=== PATIENT | male | born 1985 | race Caucasian/White ===

== ENCOUNTER 2016-09-14 08:58 | Emergency (ER) | payer BC, OTHER ==
[~2016-09-14] VITALS: Ht 175.3 cm; Wt 110.0 kg
[2016-09-14 09:02] VITALS: Ht 175.3 cm; Wt 110.0 kg
--- NOTE | 2016-09-14 10:09 | ERD ---
ER Documentation Chief Complaint Date/Time DATE: 09/14/16 TIME: 10:07 Chief Complaint FELT "LUMP" ON LEFT TESTICLE HPI Patient is a 31 year old male who presents to the ED with left testicular pain x 4 days. 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 Pain is when he is walking and standing. He does not have pain when he lays down. Denies history of hernia in the past. Denies vomiting or diarrhea. Denies constipation. His last bowel movement was yesterday. Denies chest pain or cough shortness of breath. Denies abdominal pain. ROS All systems reviewed and are negative except as per history of present illness. Medications Home Meds Active Scripts Naproxen* (Naprosyn*) 500 Mg Tablet, 500 MG PO BID Y for PAIN AND/OR INFLAMMATION, #30 TAB Prov:KAPIL GARCÍA PA-C 09/14/16 Allergies Allergies: Coded Allergies: No Known Allergy (Unverified , 09/14/16) PMhx/Soc Medical and Surgical Hx: pt denies Medical Hx, pt denies Surgical Hx History of Surgery: No Anesthesia Reaction: No Hx Neurological Disorder: No Hx Respiratory Disorders: No Hx Cardiac Disorders: No Hx Psychiatric Problems: No Hx Miscellaneous Medical Probl: No Hx Alcohol Use: Yes (socially) Hx Substance Use: No Hx Tobacco Use: No Smoking Status: Never smoker FmHx Family History: No coronary disease, No diabetes, No other Physical Exam Vitals Vital Signs Date Time Temp Pulse Resp B/P Pulse Ox O2 Delivery O2 Flow Rate FiO2 09/14/16 09:02 98.1 80 18 143/95 99 Physical Exam GENERAL: Well-developed, well-nourished male. Appears in no acute distress. HEAD: Normocephalic, atraumatic. EYES: Pupils are equally reactive bilaterally. EOMs grossly intact. No conjunctival erythema. ENT: Moist mucous membranes. No uvula deviation. No kissing tonsils. No exudates. NECK: Supple. No lymphadenopathy or thyromegaly. No meningismus. negative kernig. negative brudinski. LUNG: Clear to auscultation bilaterally. No rhonchi, wheezing, rales or coarse breath sounds. HEART: Regular rate and rhythm. No murmurs, rubs or gallops. ABDOMEN: No scars, ecchymosis or rashes noted. Soft, nontender, and nondistended. Positive bowel sounds in all four quadrants. No rebound tenderness , no guarding. (-) McBurneys point tenderness. No CVA tenderness. no hernia. : No erythema or swollen testicles. Bilaterally descended. Slight tenderness to the left testicle BACK: No midline tenderness. Extremities: Equal pulses bilaterally. No peripheral clubbing, cyanosis or edema. No unilateral leg swelling. NEUROLOGIC: Alert and oriented. Moving all four extremities. 5/5 strength in all extremities. Normal speech. Steady gait. SKIN: Normal color. Warm and dry. No rashes or lesions. Capillary refill < 2 seconds Procedures/MDM ER COURSE: I kept the patient and/or family informed of laboratory and diagnostic imaging results throughout the emergency room course. IMAGING STUDIES [place] [id number] Radiology Main Line: [phone] DIAGNOSTIC IMAGING REPORT Patient: LINH SRIVASTAVA : 1985 Age: 31 Sex: M MR #: [id number] DOS: 09/14/16 0930 Ordering MD: KAPIL GARCÍA PA-C Location: [facility] Room/Bed: PROCEDURE: Scrotal ultrasound CLINICAL INDICATION: Left testicular pain TECHNIQUE: Scrotal ultrasound was performed with sagittal and transverse views. Miranda scale and color imaging was performed. Images were reviewed on high resolution PACS monitors. COMPARISON: None available FINDINGS: The right testicle measures 3.6 x 2.2 x 3.3 cm. There is normal size and echogenicity and morphology of the right testicle with normal blood flow. The right epididymis is normal. No hydrocele is seen. Soft tissues are unremarkable. No mass or cyst or other abnormality is present. There is no evidence for a varicocele. The left testicle measures 2.6 x 1.7 x 3.1 cm. There is normal size and echogenicity and morphology of the left testicle with normal blood flow. There is a 4 mm left epididymal head cyst. The left epididymis is otherwise normal. No hydrocele is seen. Soft tissues are unremarkable. No mass or cyst or other abnormality is present. There is no evidence for a varicocele. IMPRESSION: Unremarkable scrotal ultrasound. RPTAT: HH .Irina Mendosa MD, Date Time Electronically viewed and signed by .Irina Mendosa MD, MD on 09/14/2016 10 :30 .G/ CC: KAPIL GARCÍA PA-C MEDICAL DECISION MAKING: This is a 31-year-old male who presents with left testicular pain 4 days. Vital signs were reviewed. Patient is afebrile. Patient is not hypoxic. Patient is nontoxic or ill-appearing ultrasound as of by radiologist is unremarkable. I have low suspicion for a strangulated or incarcerated hernia. Low suspicion for pyelonephritis, UTI, nephrolithiasis, appendicitis, testicular torsion, incarcerated or strangulated hernia. Patient was given Toradol DISCHARGE: At this time, patient is stable for discharge and outpatient management with no new complaints during the ER course. Patient was sent home with Motrin for pain and to follow-up with urologist. Copy of ultrasound report given to patient. Patient will be discharged home with instructions to recheck for new or worsening symptoms such as fever, nausea, weakness, LOC and to follow up with primary care in the next 1-2 days. Patient was advised to return to the ER for any new or worsening symptoms. Plan was discussed and patient and/or family understands and agrees. Home instructions were given. Departure Diagnosis: Primary Impression: Testicular pain, left Condition: Stable KAPIL GARCÍA PA-C Sep 14, 2016 10:09
--- NOTE | 2016-09-14 10:30 | RADRPT ---
PROCEDURE: Scrotal ultrasound CLINICAL INDICATION: Left testicular pain TECHNIQUE: Scrotal ultrasound was performed with sagittal and transverse views. Miranda scale and co elia imaging was performed. Images were reviewed on high resolution PACS monitors. COMPARISON: None available FINDINGS: The right testicle measures 3.6 x 2.2 x 3.3 cm. There is normal size and echogenicity and morphology of the right testicle with normal blood flow. The right epididymis is normal. No hydrocele is seen . Soft tissues are unremarkable. No mass or cyst or other abnormality is present. There is no evid ence for a varicocele. The left testicle measures 2.6 x 1.7 x 3.1 cm. There is normal size and echogenicity and morphology of the left testicle with normal blood flow. There is a 4 mm left epididymal head cyst. The left ep ididymis is otherwise normal. No hydrocele is seen. Soft tissues are unremarkable. No mass or cys t or other abnormality is present. There is no evidence for a varicocele. IMPRESSION: Unremarkable scrotal ultrasound. RPTAT: HH .Irina Mendosa MD, Date Time Electronically viewed and signed by .Irina Mendosa MD, MD on 09/14/2016 10:30 .G/
[2016-09-14] MEDS ORDERED: NAPR-260 PO (10:40)
[2016-09-14] MEDS ORDERED: KETOROLAC 30 MG INJ IM STA (10:40)
[2016-09-14 11:40] VITALS: BP 127/85; PULSE 72; RESP 19; TEMP 98.4
== END 2016-09-14 11:41 | disposition home or self-care (01) ==
LOC: FTE 08:58
DX: N50.812 Left testicular pain (principal)
CPT/HCPCS: 76870; 96372; J1885; Z7502